=== PATIENT | female | born 1985 | race Two or more races ===

== ENCOUNTER 2024-08-04 14:43 | Emergency (ER) | payer OTHER ==
[~2024-08-04] VITALS: Ht 175.3 cm; Wt 90.7 kg
[2024-08-04 15:52] VITALS: BP 150/70; O2SAT 10
[2024-08-04 17:14] LABS: HEMOGLOBIN 13.7 g/dL (12.0-15.00); MEAN CORPUSCULAR HEMOGLOBIN 29.8 pg (27.00-32.0); MEAN CORPUSCULAR HGB CONC 33.5 g/dl (32.0-36.0); PLATELET COUNT 286 K/uL (150-450); RED BLOOD COUNT 4.61 M/uL (4.00-6.00); RED CELL DISTRIBUTION WIDTH 12.9 % (11.5-14.5)
[2024-08-04 17:40] LABS: PH,URINE 5.5 (5.0-8.0); URINE APPEARANCE Clear; URINE BILIRRUBIN Negative (NEGATIVE); URINE BLOOD Large; URINE COLOR Yellow; URINE GLUCOSE Negative (NEGATIVE); URINE KETONE Trace (NEGATIVE); URINE LEUKOCYTE Trace; URINE NITRATE Negative; URINE PROTEIN Trace (NEGATIVE)
[2024-08-04 17:45] LABS: URINE EPITHELIAL CELLS 15.8 uL (0.0-38.8); URINE RBC 49.6 uL (0.0-20.8)
[2024-08-04 17:58] LABS: INR 0.95; PARTIAL THROMBOPLASTIN TIME 27.6 SECONDS (22.0-34.0); PROTHROMBIN TIME 10.4 SECONDS (9.0-11.5)
[2024-08-04 18:17] LABS: URINE CRYSTALS FEW /HPF
== END 2024-08-04 22:09 | disposition home or self-care (01) ==
LOC: ER 14:45
PROVIDERS: Emergency Medicine
DX: O20.9 Hemorrhage in early pregnancy, unspecified (principal); Z3A.01 Less than 8 weeks gestation of pregnancy